=== PATIENT | female | born 1965 | race Caucasian/White ===

== ENCOUNTER 2019-02-03 08:43 | Emergency (ER) | payer SELFPAY ==
[~2019-02-03] VITALS: Ht 157.5 cm; Wt 63.5 kg
[2019-02-03] MEDS ORDERED: HYDROcodone/APAP 10 MG/325 MG (LORTAB) TAB PO ONE (09:15)
--- NOTE | 2019-02-03 09:37 | ED Upper Extremity ---
General Chief Complaint: Trauma-Non Activation Stated Complaint: FALL; LT KNEE & FACIAL INJ Nursing Triage Note: Had a pre-existingL knee injury from last fall. The left knee gave out on her this morning and she fell, hitting left jaw on a metal bedframe. Is having severe knee pain and left jaw pain rated at 8/10. Nursing Sepsis Screen: No Definite Risk Source: patient Exam Limitations: no limitations History of Present Illness Date Seen by Provider: February 03, 2019 Time Seen by Provider: 09:00 Initial Comments Patient is a 53-year-old female with history of chronic left knee pain who presents with a pain, shoulder and left jaw pain after slipping and falling landing on her left side. Patient states her left knee which normally gives her trouble gave out resulting in the fall. Patient denies loss of consciousness. She does report shoulder pain worse with range of motion, with no obvious deformity on exam and left mandible pain with no obvious swelling or bruising but tenderness to palpation over her body and angle of mandible. Patient denies headache, posterior neck pain, chest pain. Injury occurred 2 hours prior to ED arrival. Last menstrual period was over one year ago which patient should be its to being menopausal. Onset: just prior to arrival Pain/Injury Location: left shoulder Method of Injury: direct blow, fell Modifying Factors: Improves With Movement Allergies and Home Medications Allergies Coded Allergies: Sulfa (Sulfonamide Antibiotics) (Verified Allergy, Unknown, 02/03/19) latex (Verified Allergy, Unknown, anaphylaxis, 02/03/19) Patient Home Medication List Home Medication List Reviewed: Yes Review of Systems Constitutional: see HPI EENTM: see HPI Respiratory: see HPI Cardiovascular: see HPI Musculoskeletal: see HPI Skin: see HPI Psychiatric/Neurological: No Symptoms Reported, See HPI Past Koxyzja-Wdnjgv-Bgcjxf Hx Past Med/Social Hx: Reviewed Nursing Past Med/Soc Hx Patient Social History Recent Foreign Travel: No Contact w/Someone Who Travel: No Recent Infectious Disease Expo: No Physical Exam Vital Signs Vital Signs - First Documented 02/03/19 08:56 Temp 99.1 Pulse 93 Resp 18 B/P (MAP) 131/90 (104) Pulse Ox 96 Capillary Refill : Less Than 3 Seconds Height, Weight, BMI Height: 5'2.00" Weight: 140lbs. oz. 63.148353ce; BMI Method:Stated General Appearance: WD/WN, no apparent distress HEENT: PERRL/EOMI, normal ENT inspection, TMs normal, other (of mandible pain, tenderness of Oddi and ankle off mandible. No malalignment, TMJ pain/tenderness or popping.) Neck: non-tender, full range of motion Cardiovascular: normal peripheral pulses, regular rate, rhythm, no edema Respiratory: chest non-tender, lungs clear Gastrointestinal: non tender Shoulder: limited ROM (left shoulder pain, limited range of motion, no gross deformity or bruising. Left knee, no bruising swelling deformity, superior and lateral TTP), soft tissue tenderness Progress/Results/Core Measures Results/Orders My Orders Orders - VIKTORIYA DONALDSON DO Hydrocodone/Apap 10/325 Tablet (Lortab 1 (02/03/19 09:15) Knee 3 View Left (02/03/19 09:09) Shoulder 3 View Left (02/03/19 09:09) Mandible 3 View Or Less (02/03/19 09:09) Medications Given in ED Current Medications Medications Dose Ordered Sig/Freda Route Start Time Stop Time Status Last Admin Dose Admin Acetaminophen/ Hydrocodone Bitart 1 ea ONCE ONCE PO 02/03/19 09:15 02/03/19 09:16 DC 02/03/19 09:42 1 EA Vital Signs/I&O 02/03/19 08:56 Temp 99.1 Pulse 93 Resp 18 B/P (MAP) 131/90 (104) Pulse Ox 96 Blood Pressure Mean: 104 Departure Communication (Admissions) Left shoulder left knee and mandible imaging studies reviewed, no fractures identified. Patient's pain, injuries addressed. Recommend supportive care with PCP follow-up. Return precautions reviewed. Pseudomonal Risk: No known risk Impression Primary Impression: Injury of left shoulder Additional Impressions: Injury of jawline Left knee injury Disposition: HOME, SELF-CARE Condition: Improved Departure-Patient Inst. Decision time for Depature: 10:06 Referrals: JARED GUZMAN MD (PCP/Family) Primary Care Physician Patient Instructions: Knee Sprain (DC), Shoulder Pain (DC) Add. Discharge Instructions: You were evaluated in the emergency department for a fall resulting in left knee pain, left shoulder pain and jaw pain. X-rays were performed and do not show a fracture or dislocation. Please wear knee immobilizer and use crutches. Take naproxen for pain and hydrocodone as needed for additional relief. Follow up with local primary care physicians in 3-5 days for reevaluation if symptoms persist. All discharge instructions reviewed with patient and/or family. Voiced und erstanding. Scripts Naproxen (Naprosyn) 500 Mg Tablet 500 MG PO BID, #30 TAB 0 Refills Prov: VIKTORIYA DONALDSON DO 02/03/19 Hydrocodone/Acetaminophen (Wadley 5-325 Tablet) 1 Each Tablet 1 TAB PO Q4-6HR for Pain MDD 10 TABS for 7 Days, #10 TAB Prov: VIKTORIYA DONALDSON DO 02/03/19 VIKTORIYA DONALDSON DO February 03, 2019 09:37
--- NOTE | 2019-02-03 09:49 | Diagnostic Imaging Report ---
Indication: Fall with left knee pain. Time of exam 9:15 AM 3 views of the left knee show normal alignment. Joint spaces are well maintained. Articular surfaces are smooth. No fracture, dislocation or effusion is seen. Impression: No acute bony abnormality is detected. Dictated by: Dictated on workstation # [id number]
--- NOTE | 2019-02-03 09:49 | Diagnostic Imaging Report ---
Indication: Fall with left shoulder pain. Time of exam 9:03 AM 3 views left shoulder demonstrate normal glenohumeral and acromioclavicular alignment. Acromiohumeral space is normal. No fracture or dislocation is seen. There is some spurring at the humeral head neck junction. Impression: No acute bony abnormality is detected. Dictated by: Dictated on workstation # [id number]
--- NOTE | 2019-02-03 09:51 | Diagnostic Imaging Report ---
INDICATION: Fall with jaw pain. Time of exam: 9:06 AM Multiple views of the mandible were obtained. No definite mandibular fracture is detected. There appear to be multiple dental caries present. IMPRESSION: No mandibular fracture is identified. Dictated by: Dictated on workstation # [id number]
[2019-02-03] MEDS ORDERED: HYDR-4226 PO (10:10)
[2019-02-03] MEDS ORDERED: NAPR-1071 PO (10:10)
--- NOTE | 2019-02-03 10:30 | NUR ---
Patient declined need for crutches. States she has crutches at home that she will use.
[2019-02-03 10:39] VITALS: BP 136/99
== END 2019-02-03 10:40 | disposition home or self-care (01) ==
LOC: ER FS 08:45
DX: S89.92XA Unspecified injury of left lower leg, initial encounter (principal); S49.92XA Unspecified injury of left shoulder and upper arm, initial encounter; S09.93XA Unspecified injury of face, initial encounter; Z88.2 Allergy status to sulfonamides; Z91.040 Latex allergy status; W01.198A Fall on same level from slipping, tripping and stumbling with subsequent striking against other object, initial encounter
CPT/HCPCS: 70100; 73030; 73562

== ENCOUNTER → 2019-08-16 | Outpatient (CLI) | payer OTHER ==
[~2019-08-16] MED LIST: HYDR-4226 PO; NAPR-1071 PO
--- NOTE | 2019-08-16 14:27 | Diagnostic Imaging Report ---
PROCEDURE: MRI lumbar spine. TECHNIQUE: Multiplanar, multisequence MRI of the lumbar spine was performed without contrast. INDICATION: Low back pain. COMPARISON: No prior studies are available for comparison. FINDINGS: Curvature and alignment of the lumbar spine is normal. Vertebral body heights are well maintained. No geographic marrow lesion or acute compression fracture is seen. There is some degenerative disc disease with loss of height and signal intensity involving the L1-L2 and L4-L5 discs. Remaining discs show fairly normal height and hydration. The conus is unremarkable at the L1 level. T12-L1: Central canal and neural foramina are patent. L1-L2: Central canal and neural foramina are widely patent. L2-L3: The central canal and neural foramina are widely patent. L3-L4: Central canal and neural foramina are widely patent. There are degenerative changes to the facets. L4-L5: Hypertrophic facet changes with broad-based disc/osteophyte complex and ligamentous thickening result in [id number] trefoil narrowing of the canal. There is significant narrowing of the lateral recesses bilaterally as well as moderate bilateral neural foraminal stenosis. L5-S1: There are degenerative changes to the facets. Central canal is widely patent. Neural foramina are patent. The paraspinous tissues are unremarkable. IMPRESSION: Lumbar spondylosis and facet arthropathy, greatest at the L4-L5 level where there is central canal, lateral recess, and neural foraminal stenosis. Dictated by: Dictated on workstation # [id number]
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
== END ==
LOC: RAD 12:28
PROVIDERS: ATTEND Nurse Practitioner
DX: S83.242A Other tear of medial meniscus, current injury, left knee, initial encounter (principal); M47.816 Spondylosis without myelopathy or radiculopathy, lumbar region; M48.061 Spinal stenosis, lumbar region without neurogenic claudication; M17.12 Unilateral primary osteoarthritis, left knee; M23.232 Derangement of other medial meniscus due to old tear or injury, left knee; M54.32 Sciatica, left side
CPT/HCPCS: 72148; 73721

== ENCOUNTER 2019-10-26 14:29 | Emergency (ER) | payer OTHER ==
[~2019-10-26] VITALS: Ht 157 cm; Wt 76.2 kg
--- NOTE | 2019-10-26 14:51 | ED General ---
General Chief Complaint: General Problems/Pain Stated Complaint: BP 180/120 Nursing Triage Note: PT REPORTS DR. GUZMAN SENT HER OVER TO THE ER [facility] HER BLOOD PRESSURE WAS 150/120 IN THE OFFICE. PT WAS STARTED ON A NEW MEDICATION LAST WEEK FOR HOT FLASHES AND SHE IS UPSET [facility] HE SENT HER TO THE ER. Nursing Sepsis Screen: No Definite Risk History of Present Illness Date Seen by Provider: Oct 26, 2019 Time Seen by Provider: 14:51 Initial Comments 54-year-old female sent over because her blood pressure was 180/120 in the medical office. Patient was started on metoprolol last week for benign hypertension and hot flashes. Patient is not having any other symptoms. She reports her in the week her blood pressure was quite a bit higher. She was seen by the nurse and then sent directly to the ER. Patient is upset because she does not want to be here because she does not have insurance. Allergies and Home Medications Allergies Coded Allergies: Sulfa (Sulfonamide Antibiotics) (Verified Allergy, Unknown, 02/03/19) latex (Verified Allergy, Unknown, anaphylaxis, 02/03/19) Home Medications Hydrocodone/Acetaminophen 1 Each Tablet, 1 TAB PO Q4-6HR Prescribed by: VIKTORIYA DONALDSON on 02/03/19 1010 Naproxen 500 Mg Tablet, 500 MG PO BID Prescribed by: VIKTORIYA DONALDSON on 02/03/19 1010 Patient Home Medication List Home Medication List Reviewed: Yes Review of Systems Review of Systems Constitutional: No chills, No dizziness Respiratory: No cough, No short of breath Gastrointestinal: no symptoms reported Genitourinary: no symptoms reported Musculoskeletal: no symptoms reported Past Cgekqaj-Jycgze-Mxjxps Hx Past Med/Social Hx: Reviewed Nursing Past Med/Soc Hx Patient Social History 2nd Hand Smoke Exposure: No Recent Foreign Travel: No Contact w/Someone Who Travel: No Recent Infectious Disease Expo: No Physical Abuse: No Sexual Abuse: No Mistreated: No Fear: No Physical Exam Vital Signs Vital Signs - First Documented 10/26/19 14:46 Temp 37.4 Pulse 87 Resp 20 B/P (MAP) 159/96 (117) Pulse Ox 99 O2 Delivery Room Air Capillary Refill : Less Than 3 Seconds Height, Weight, BMI Height: 5'2.00" Weight: 140lbs. oz. 63.995563pt; 30.00 BMI Method:Stated General Appearance: No Apparent Distress, WD/WN HEENT: PERRL/EOMI Respiratory: Chest Non Tender, Lungs Clear Cardiovascular: Regular Rate, Rhythm, Normal Peripheral Pulses Gastrointestinal: Non Tender, Soft Extremity: Normal Capillary Refill Neurologic/Psychiatric: Alert, Oriented x3, Normal Mood/Affect, wheelchair van operator first responder II-XII Norm as Tested Progress/Results/Core Measures Suspected Sepsis Recent Fever Within 48 Hours: No Infection Criteria Present: None New/Unexplained Altered Menta: No Sepsis Screen: No Definite Risk SIRS Temperature: Pulse: 87 Respiratory Rate: 20 Blood Pressure 159 /96 Mean: 117 Results/Orders Vital Signs/I&O 10/26/19 10/26/19 14:46 14:54 Temp 37.4 37.4 Pulse 87 87 Resp 20 20 B/P (MAP) 159/96 (117) 159/96 (117) Pulse Ox 99 99 O2 Delivery Room Air Capillary Refill : Less Than 3 Seconds Blood Pressure Mean: 117 Progress Note : Time: 15:12 Progress Note Patient's blood pressure upon arrival to the ER was 159/96. Patient is not having any acute symptoms such as chest pain, vision changes, shortness of breath. Patient is upset because "she doesn't have insurance and does not have the my to be here. I discussed with patient that at this time that there is no need for us to do any testing. That she was just started on her new blood pressure medication and that it needs to have a couple weeks to take full effect. I did apologize to her that she was sent over here. I also discussed with her that Reser shows that she has up to 6 months. Her blood pressure under control with no long-term acute issues and that also shows that if we get too aggressive in the ER we can actually drop her blood pressure to quick and do more harm than good. I discussed her the need to continue to take her metoprolol as prescribed. And that she should follow-up next week with her primary care provider Departure Impression Primary Impression: Benign hypertension Disposition: HOME, SELF-CARE Condition: Stable Departure-Patient Inst. Referrals: JARED GUZMAN MD (PCP/Family) Primary Care Physician Patient Instructions: Controlling Your Blood Pressure Through Lifestyle, Medicines for High Blood Pressure, High Blood Pressure in Adults JASMINA DAS DO Oct 26, 2019 14:50
[2019-10-26 14:54] VITALS: BP 159/96
== END 2019-10-26 14:54 | disposition home or self-care (01) ==
LOC: EDUNIT# 14:29 → ER FS 14:31
DX: I10 Essential (primary) hypertension (principal); Z88.2 Allergy status to sulfonamides; Z91.040 Latex allergy status
CPT/HCPCS: 99281